=== PATIENT | female | born 1965 | race Two or more races ===

== ENCOUNTER 2018-11-04 08:33 | Day surgery (SDC) | payer OTHER ==
[2018-11-04] MEDS ORDERED: DEXAMETHASONE SOD PHOSPHATE 4 MG INJ IV ONE (08:34)
[2018-11-04] MEDS ORDERED: LIDOCAINE-MPF 2% 5 ML VIAL MC ONE (08:34)
[2018-11-04] MEDS ORDERED: ONDANSETRON 4 MG/2 ML VIAL IV ONE (08:34)
[2018-11-04] MEDS ORDERED: SEVOFLURANE 250 ML BOTTLE IH ONE (08:34)
[2018-11-04] MEDS ORDERED: IV LACTATED RINGERS SOLUTION 1,000 ML BAG IV ONE (08:34)
[2018-11-04] MEDS ORDERED: CEFAZOLIN 1 G VIAL MC ONE (08:34)
[2018-11-04] MEDS ORDERED: PROPOFOL 200 MG/20 ML BOTTLE IV ONE (08:34)
[2018-11-04 09:24] LABS: BASOPHILS % (AUTO) 0.4 % (0.0-2.0); EOSINOPHILS # (AUTO) 0.1 K/uL (0.0-0.7); EOSINOPHILS % (AUTO) 1.8 % (0.0-7.0); HEMATOCRIT 38.4 % (31.2-41.9); HEMOGLOBIN 13.6 g/dL (10.9-14.3); LYMPHOCYTES # (AUTO) 3.1 K/uL (20.0-40.0); LYMPHOCYTES % (AUTO) 39.7 % (20.5-51.5); MEAN CORPUSCULAR HEMOGLOBIN 30.5 uug (24.7-32.8); MEAN CORPUSCULAR HGB CONC 35 g/dL (32.3-35.6); MEAN CORPUSCULAR VOLUME 86.1 fL (75.5-95.3); MONOCYTES # (AUTO) 0.3 K/uL (2.0-10.0); MONOCYTES % (AUTO) 4.4 % (0.0-11.0); NEUTROPHILS # (AUTO) 4.2 K/uL (1.8-8.9); NEUTROPHILS % (AUTO) 53.7 % (38.5-71.5); PLATELET COUNT (AUTO) 331 K/uL (179-408); RED BLOOD CELL COUNT(AUTO) 4.46 MIL/uL (3.63-4.92); WHITE BLOOD COUNT (AUTO) 7.9 K/uL (3.8-11.8)
[2018-11-04 09:30] LABS: *BILIRUBIN,URIN NEGATIVE (NEGATIVE); *BLOOD, URINE 2+ (NEGATIVE); *CLARITY,URINE CLEAR (CLEAR); *COLOR,URINE YELLOW (YELLOW); *KETONES,URINE NEGATIVE (NEGATIVE); *UROBILINOGEN,URINE 0.2 E.U./dl (NORMAL); LEUKOCYTE ESTERASE ,URINE 1+ (NEGATIVE); NITRITE, URINE NEGATIVE (NEGATIVE); PH,URINE 7.5 (5.0-8.0); UGLUCOSE NEGATIVE (NEGATIVE)
[2018-11-04 09:34] LABS: CREATININE 0.7 mg/dL (0.6-1.3); POTASSIUM 3.5 mmol/L (3.5-5.1)
[2018-11-04 09:40] LABS: BACTERIA,URINE FEW /HPF (NONE SEEN); BILIRUBIN,TOTAL 0.5 mg/dL (0.2-1.0); SQUAMOUS EPITHELIAL CELL,UR FEW /HPF (NONE SEEN); TOTAL PROTEIN, SERUM 7.1 g/dL (6.4-8.2); WBC,URINE 0-3 /HPF (0-3)
[2018-11-04] MEDS ORDERED: POLYMYXIN B SULFATE 500,000 UNITS, BACITRACIN 50,000 UNITS, NORMAL SALINE 20 ML MC ONE ×3 (10:00)
[2018-11-04] MEDS ORDERED: BUPIVACAINE 0.25% 30 ML VIAL ONE (10:00)
[2018-11-04] MEDS ORDERED: MIDAZOLAM HCL 2 MG/2 ML VIAL ONE (10:54)
[2018-11-04] MEDS ORDERED: FENTANYL CITRATE 100 MCG/2 ML AMPUL ONE (11:21)
[2018-11-04] MEDS ORDERED: TRAMADOL HCL 50 MG TABLET ONE (13:37)
== END 2018-11-04 14:20 | disposition home or self-care (01) ==
LOC: DS 08:33
PROVIDERS: ATTEND Orthopaedic Surgery
DX: G56.02 Carpal tunnel syndrome, left upper limb (principal); I10 Essential (primary) hypertension; E03.9 Hypothyroidism, unspecified; E66.9 Obesity, unspecified; Z98.890 Other specified postprocedural states; Z79.899 Other long term (current) drug therapy; Z80.0 Family history of malignant neoplasm of digestive organs; G89.29 Other chronic pain; R73.9 Hyperglycemia, unspecified; Z79.01 Long term (current) use of anticoagulants
CPT/HCPCS: 36415; 64721; 71045; 80053; 81001; 85025; 85730; 93005; J0690; J1100; J2250; J2405; J3010; J3490 ×4; J7120 ×2; A4649; A4663